=== PATIENT | female | born 1950 | race Caucasian/White ===

== ENCOUNTER → 2016-06-05 | Outpatient (CLI) | payer OTHER, BC ==
--- NOTE | 2016-06-06 10:59 | MA ---
Bilateral Digital Screening Mammography Clinical History: 65-year-old female whose maternal aunt had breast cancer at age 40. The patient p resents today for routine annual mammographic screening. TECHNIQUE: Digital CC and MLO views of each breast are compared with a previous study from [employer], [facility], dated February 26, 2014. A cutaneous marker has been placed over a mol e on the skin surface of the right breast. Additionally, the exam is CAD checked. Breast Density: Type B. Computer-Aided Detection Evaluation: Reviewed. FINDINGS: There is a mild residual fibroglandular pattern, with areas of slight parenchymal asymmetr y, which are similar in distribution to that seen previously. Benign-appearing axillary lymph nodes are noted on the right. Rare benign-appearing round calcifications are seen, with no suspicious clus ters. IMPRESSION: Negative mammography. BI-RADS CATEGORY 1. Recommendation: Routine annual mammographic screening. [facility] will send a result letter to the patient. Negative mammography should not preclude additional work up of a clinically suspicious finding. The patient's information is entered into a reminder system with a target due date for her next mammo gram. E:[email or web address]
== END ==
LOC: BRMIMAGING 10:41
PROVIDERS: ATTEND Family Medicine
DX: Z12.31 Encounter for screening mammogram for malignant neoplasm of breast (principal); Z80.3 Family history of malignant neoplasm of breast
CPT/HCPCS: G0202

== ENCOUNTER → 2018-03-21 | Outpatient (CLI) | payer OTHER, BC | LOC: BRMIMAGING 12:47 | PROVIDERS: ATTEND Family Medicine | DX: Z12.31 Encounter for screening mammogram for malignant neoplasm of breast (principal) ==